=== PATIENT | female | born 1960 | race Caucasian/White ===

== ENCOUNTER 2020-03-19 16:46 | Emergency (ER) | payer OTHER ==
[~2020-03-19] VITALS: Ht 177.8 cm; Wt 63.6 kg
--- NOTE | 2020-03-19 17:37 | PHYS DOC ---
Past Medical History Past Medical History: Arthritis, Depression Additional Past Medical Histor: COVID 19 (DARRYL ALARCON DO) Past Surgical History: Cholecystectomy, Hysterectomy Additional Past Surgical Histo: TENNIS ELBOW (DARRYL ALARCON DO) Smoking Status: Never Smoker Alcohol Use: None (DARRYL ALARCON DO) General Adult EDM: Chief Complaint: SHORTNESS OF BREATH HPI: HPI: Patient is a 59 year old female who presented to ER for evaluation of cough and trouble breathing. Patient was diagnosed with COVID-19 infection 11 days ago. Patient did not get better, she went to see her doctor yesterday who did an x- ray of her chest and she has developed pneumonia. Patient feels weak and tired, having trouble breathing with exertion so she came in today. Patient is not a smoker, she has no history of diabetes or hypertension. Patient has no history of coronary ARTERY DISEASE OR blood clot disorder. (DARRYL ALARCON DO) Review of Systems: Review of Systems: Constitutional: Denies fever or chills. [] Eyes: Denies change in visual acuity. [] HENT: Denies nasal congestion or sore throat. [] Respiratory: Positive for cough and shortness of breath. [] Cardiovascular: Denies chest pain or edema. [] GI: Denies abdominal pain, nausea, vomiting, bloody stools or diarrhea. [] : Denies dysuria. [] Musculoskeletal: Denies back pain or joint pain. [] Integument: Denies rash. [] Neurologic: Denies headache, focal weakness or sensory changes. POSITIVE FOR GENERALIZED WEAKNESS Endocrine: Denies polyuria or polydipsia. [] Lymphatic: Denies swollen glands. [] Psychiatric: Denies depression or anxiety. [] (DARRYL ALARCON DO) Heart Score: Risk Factors: Risk Factors: DM, Current or recent (<one month) smoker, HTN, HLP, family history of CAD, obesity. Risk Scores: Score 0 - 3: 2.5% MACE over next 6 weeks - Discharge Home Score 4 - 6: 20.3% MACE over next 6 weeks - Admit for Clinical Observation Score 7 - 10: 72.7% MACE over next 6 weeks - Early Invasive Strategies (DARRYL ALARCON DO) Allergies: Allergies: Allergies Coded Allergies Type Severity Reaction Last Updated Verified nitrofurantoin Allergy Unknown HIVES 03/19/20 Yes (DARRYL ALARCON DO) Physical Exam: PE: Constitutional: Well developed, well nourished, no acute distress, non-toxic appearance. [] HENT: Normocephalic, atraumatic, bilateral external ears normal, oropharynx moist, no oral exudates, nose normal. [] Eyes: PERRLA, EOMI, conjunctiva normal, no discharge. [] Neck: Normal range of motion, no tenderness, supple, no stridor. [] Cardiovascular:Heart rate regular rhythm, no murmur [] Lungs & Thorax: Bilateral breath sounds clear to auscultation [] Abdomen: Bowel sounds normal, soft, no tenderness, no masses, no pulsatile masses. [] Skin: Warm, dry, no erythema, no rash. [] Back: No tenderness, no CVA tenderness. [] Extremities: No acute problem, no edema, no swelling no deformity. Neurologic: Alert and oriented X 3, normal motor function, normal sensory function, no focal deficits noted. [] Psychologic: Affect normal, judgement normal, mood normal. [] (DARRYL ALARCON DO) Current Patient Data: Labs: Laboratory Tests Test 03/19/20 17:30 White Blood Count 5.0 x10^3/uL Red Blood Count 4.09 x10^6/uL Hemoglobin 12.1 g/dL Hematocrit 35.0 % Mean Corpuscular Volume 86 fL Mean Corpuscular Hemoglobin 30 pg Mean Corpuscular Hemoglobin Concent 35 g/dL Red Cell Distribution Width 12.8 % Platelet Count 259 x10^3/uL Neutrophils (%) (Auto) 68 % Lymphocytes (%) (Auto) 17 % Monocytes (%) (Auto) 14 % Eosinophils (%) (Auto) 0 % Basophils (%) (Auto) 0 % Neutrophils # (Auto) 3.4 x10^3/uL Lymphocytes # (Auto) 0.9 x10^3/uL Monocytes # (Auto) 0.7 x10^3/uL Eosinophils # (Auto) 0.0 x10^3/uL Basophils # (Auto) 0.0 x10^3/uL Current Medications Medications (Trade) Dose Ordered Sig/Fidelina Route PRN Reason Start Time Stop Time Status Last Admin Dose Admin Dexamethasone Sodium Phosphate (Decadron) 4 mg 1X ONCE IVP 03/19/20 18:00 03/19/20 18:01 DC Sodium Chloride 1,000 ml @ 1,000 mls/hr 1X ONCE IV 03/19/20 18:00 03/19/20 18:59 Vital Signs: Vital Signs Date Time Temp Pulse Resp B/P (MAP) Pulse Ox O2 Delivery O2 Flow Rate FiO2 03/19/20 17:08 98.4 60 18 131/63 (85) 96 Room Air 98.4 (DARRYL ALARCON DO) Radiology/Procedures: Radiology/Procedures: [][address] [place] [address] IMAGING REPORT Signed PATIENT: ANTHONY HARDY ACCOUNT: [id number] : 1960 LOCATION: ER AGE: 59 SEX: F EXAM STATUS: REG ER ORD. PHYSICIAN: DARRYL ALARCON DO REASON: SOA, COVID-19 INFECTION SINCE 03/09/20 PROCEDURE: PORTABLE CHEST 1V INDICATION: Reason: SOA, COVID-19 INFECTION SINCE 03/09/20 / Spl. Instructions: / History: COMPARISON: None. FINDINGS: Single view of chest obtained. Mild interstitial opacities. There is also patchy nodular component on the left. Cardiac silhouette is not enlarged. IMPRESSION: * Mild interstitial as well as patchy nodular opacities. This could be infectious in nature including from viral etiology. Follow-up could be obtained to ensure that this appropriately decreases. Electronically signed by: Mike Thomas MD (03/19/2020 6:01 PM) [id number] DICTATED and SIGNED BY: MIKE THOMAS MD DATE: 03/19/20 [id number] (DARRYL ALARCON DO) Radiology/Procedures: IMAGING REPORT Signed PATIENT: ANTHONY HARDY ACCOUNT: [id number] : 1960 LOCATION: ER AGE: 59 SEX: F EXAM STATUS: REG ER ORD. PHYSICIAN: DARRYL ALARCON DO REASON: SOA, COVID-19 INFECTION SINCE 03/09/20 PROCEDURE: PORTABLE CHEST 1V INDICATION: Reason: SOA, COVID-19 INFECTION SINCE 03/09/20 / [facility]. Instructions: / History: COMPARISON: None. FINDINGS: Single view of chest obtained. Mild interstitial opacities. There is also patchy nodular component on the left. Cardiac silhouette is not enlarged. IMPRESSION: * Mild interstitial as well as patchy nodular opacities. This could be infectious in nature including from viral etiology. Follow-up could be obtained to ensure that this appropriately decreases. Electronically signed by: Mike Thomas MD (03/19/2020 6:01 PM) [id number] DICTATED and SIGNED BY: MIKE THOMAS MD DATE: 03/19/20 [id number] ([facility],JOHANN Ospina DO) Course & Med Decision Making: Course & Med Decision Making Pertinent Labs and Imaging studies reviewed. (See chart for details) Patient is a 59-year-old female who presented to ER for evaluation general weakness, trouble breathing, patient is currently infected with COVID-19. Care endorsed to incoming physician at shift change [facility]. (DARRYL ALARCON DO) Course & Med Decision Making COVID-19 CRITERIA: The patient was evaluated during the global COVID-19 pandemic, and that diagnosis was suspected/considered upon their initial presentation. Their evaluation, treatment and testing was consistent with current guidelines for patients who present with complaints or symptoms that may be related to COVID-19. Concern for worsening shortness of breath in the setting of Covid. Patient speaking in full sentences, no increased work of breathing or hypoxia, not requiring any oxygen. Labs with elevated liver enzymes which could be attributed to Covid, has broad differential. Patient afebrile with no leukocytosis or leukopenia. Patient reports she did smoke tobacco at one point in her life-is not wheezing. Is currently on day 2/3 of oral antibiotics for pneumonia. Will discharge home with albuterol inhaler as needed and Flovent twice daily. Will discharge home with strict ED return precautions were given for chest pain, dyspnea, stroke symptoms or increased work of breathing. Encouraged urgent outpatient follow-up with PMD to repeat LFTs and pulmonology if symptoms should become chronic. Life-threatening processes were considered but are low suspicion at this time, given history, physical exam and ED workup. Pt was educated on all prescription medications and adverse effects. All patient's questions were answered and pt was stable at time of discharge. Life/limb-threatening differential includes but is not limited to, ACS, dysrhythmia, pneumothorax or hemothorax, pulmonary embolus, pneumonia, bronchoconstriction, pulmonary edema, angioedema, epiglottitis, tracheitis, Brian's angina, RPA/CARPET TILE LAYER, anaphylaxis, angioedema, cardiac tamponade or murmurs, pericarditis, myocarditis, poisoning or toxicity, sepsis or autoimmune/neurologic disease. I spoken with the patient and her caregivers. I explained the patient's condition, diagnoses and treatment plan based on the information available to me at this time. I have answered the patient and her caregiver's questions and addressed any concerns. The patient and her caregivers have a good understanding of patient's diagnosis, condition and treatment plan as can be expected at this point. Vital signs have been stable. Patient's condition is stable and appropriate for discharge from the emergency department. Patient will pursue further outpatient evaluation with primary care physician or other designated or consulting physician as outlined in the discharge instructions. The patient and/or caregivers are agreeable to this plan of care and follow-up instructions have been explained in detail. The patient and/or caregivers have received these instructions in written form and have expressed an understanding of the discharge instructions. The patient and/or caregivers are aware that any significant change of condition or worsening of symptoms should prompt immediate return to this or the closest emergency department or call to 911. (JOHANN PARHAM DO) Dragon Disclaimer: Karina Disclaimer: This electronic medical record was generated, in whole or in part, using a voice recognition dictation system. (DARRYL ALARCON DO) Departure Departure Impression: Primary Impression: COVID-19 virus infection Additional Impressions: Elevated liver enzymes Pneumonia Disposition: 01 DC HOME SELF CARE/HOMELESS Condition: STABLE Referrals: UNKNOWN PCP NAME (PCP) FOLLOW UP WITH FAMILY MEDICINE: TO REPEAT FOR LIVER FUNCTION TESTS (AST/ALT) Family Medicine Address: [address], [address] [place] [address] Patient Instructions: AST, Aspartate Aminotransferase Additional Instructions: FOLLOW UP WITH: [facility] Address: [address] [place] [address] Return to ED immediately if your oxygen level drops below 90% (purchase a pulse oximetry at a medical supply store), difficulties breathing including rapid breathing or increased work of breathing (skin sucking under ribs), chest pain or stroke-like symptoms (facial droop, speech changes, arm/leg weakness). You have been tested for or diagnosed with COVID-19. It is an infection caused by a new type of coronavirus. COVID-19 will cause cold-like or mild flu symptoms in most. It can cause more severe symptoms like problems breathing in some. There is no treatment for COVID-19. The body will clear the infection over time. Self-care will help to ease discomfort. Steps to Take: Self-Care Rest as needed. Healthy habits may help you feel better. Steps include: Choose healthy foods including fruits and vegetables. Drink water throughout the day. Get plenty of sleep each night. If you smoke, try to quit. It may ease breathing. Avoid alcohol. Keep Others Healthy The virus can spread to others. Droplets are released every time you sneeze or cough. The droplets can get into the mouth, nose, or eyes of people near you and lead to infection. To lower the chances of spreading COVID-19 to others: Stay at home until your doctor has said it is safe to leave. If you tested positive this will mean staying isolated until both of the following are true: At least 7 days have passed since the start of illness. You are free of fever for at least 72 hours without the use of medicine. During this time: - Avoid public areas, events, or transportation. Do not return to work or school until your doctor has said it is safe to do so. - Call ahead if you need to go to a medical center. Let them know you may have COVID-19. It will help them guide you where to go. They may also ask you to wear a facemask when you come to the office. - If you call for emergency medical services, let them know you may have COVID- 19. While at home: - Try to avoid close contact with others. Stay about 6 feet away. - If possible, spend most of your time in a separate room from others. - Use a face mask if you will be in close contact with others such as sharing a room or vehicle. - Have someone wipe down common surfaces in the home. Use household cable respooler every day on areas like doorknobs, counters, or sinks. - Cough or sneeze into a tissue. Throw the tissue away right after use. If a tissue is not available, cough or sneeze into your elbow. - Wash your hands often. Wash them after sneezing or coughing. Use soap and water and wash for at least 20 seconds. Alcohol based hand industrial sweeper cleaner can be used if soap and water is not available. - Do not prepare food for others. Avoid sharing personal items like forks, spoons, or toothbrushes. - Avoid close contact with pets while you are sick. There is no evidence of the virus passing to pets. This is a safety step until more is known about this virus. Isolation can be frustrating. Social interaction can help. Keep in touch with friends and family through phone and tech options. You can still interact with others in your home, just keep a safe distance of about 6 feet. Follow-up: Your doctors office will check in with you to see if there are any changes in your health. You may be asked to keep track of symptoms to share with them. They will also let you know when you are clear to be in public again. Problems to Look Out For: Contact your doctor if your recovery is not going as you expect. Get emergency care if you have problems such as: - Trouble breathing - Nonstop chest pain or pressure - Changes in awareness, confusion, or problems waking - Lips or face have bluish color - Worsening of symptoms If you think you have an emergency, call for emergency medical services right away. [facility] Fluticasone Propionate (FLOVENT 44MCG HFA) 10.6 Gm Aer.w.adap 2 PUFF IH BID, #1 INHALER 0 Refills Prov: JOHANN PARHAM DO 03/19/20 Albuterol Sulfate (VENTOLIN HFA INHALER) 18 Gm Hfa.aer.ad 2 PUFF INH QID for FOR ASTHMA for 30 Days, #1 INHALER 0 Refills Prov: JOHANN PARHAM DO 03/19/20 DARRYL ALARCON DO Mar 19, 2020 17:37 JOHANN PARHAM DO Mar 19, 2020 18:22
[2020-03-19 17:45] LABS: BASO % 0 % (0-3); EOS % 0 % (0-3); HEMOGLOBIN 12.1 g/dL (12.0-15.5); LYMPH # 0.9 x10^3/uL (1.0-4.8); LYMPH % 17 % (24-48); MEAN CORPUSCULAR HEMOGLOBIN 30 pg (25-35); MEAN CORPUSCULAR HGB CONC 35 g/dL (31-37); MEAN CORPUSCULAR VOLUME 86 fL (79-100); MONO # 0.7 x10^3/uL (0.0-1.1); MONO % 14 % (0-9); NEUT # 3.4 x10^3/uL (1.8-7.7); NEUT % 68 % (31-73); PLATELET COUNT 259 x10^3/uL (140-400); RED BLOOD COUNT 4.09 x10^6/uL (3.50-5.40); RED CELL DISTRIBUTION WIDTH 12.8 % (11.5-14.5)
[2020-03-19] MEDS ORDERED: IV NORMAL SALINE 1000ML BAG 1,000 ML IV ONE (18:00)
[2020-03-19] MEDS ORDERED: DEXAMETHASONE SOD PHOS 4 MG/ML VIAL IVP ONE (18:00)
--- NOTE | 2020-03-19 18:04 | RAD ---
INDICATION: Reason: SOA, COVID-19 INFECTION SINCE 03/09/20 / Spl. Instructions: / History: COMPARISON: None. FINDINGS: Single view of chest obtained. Mild interstitial opacities. There is also patchy nodular component on the left. Cardiac silhouette i s not enlarged. IMPRESSION: * Mild interstitial as well as patchy nodular opacities. This could be infectious in nature includin g from viral etiology. Follow-up could be obtained to ensure that this appropriately decreases. Electronically signed by: Trevor Zuleta MD (03/19/2020 6:01 PM) [id number]
[2020-03-19 18:06] LABS: CALCIUM 9.4 mg/dL (8.5-10.1); CREATININE 0.7 mg/dL (0.6-1.0); GFR 85.1; POTASSIUM 4.1 mmol/L (3.5-5.1)
[2020-03-19 18:14] LABS: ALBUMIN/GLOBULIN RATIO 0.7 (1.0-1.7); TOTAL BILIRUBIN 0.4 mg/dL (0.2-1.0); TOTAL PROTEIN 7.2 g/dL (6.4-8.2)
--- NOTE | 2020-03-19 18:16 | EKG ---
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
[2020-03-19 19:07] LABS: BILIRUBIN,URINE NEGATIVE (NEG); CLARITY,URINE CLEAR; COLOR,URINE YELLOW; NITRITE,URINE NEGATIVE (NEG); PH,URINE 7.5 (<5.0-8.0); PROTEIN,URINE 100 mg/dL (NEG-TRACE)
[2020-03-19 19:15] LABS: BACTERIA,URINE 0 /HPF (0-FEW); RBC,URINE 0 /HPF (0-2); WBC,URINE OCC /HPF (0-4)
[2020-03-19 20:09] VITALS: BP 142/79
[2020-03-19] MEDS ORDERED: FLUT10.6 IH (20:10)
[2020-03-19] MEDS ORDERED: VENTOLIN HFA18 GM INH (20:10)
== END 2020-03-19 20:26 | disposition home or self-care (01) ==
LOC: ER 16:46
DX: U07.1 COVID-19 (principal); R79.89 Other specified abnormal findings of blood chemistry; J18.9 Pneumonia, unspecified organism; R05 Cough; R06.02 Shortness of breath; M19.90 Unspecified osteoarthritis, unspecified site; F32.9 Major depressive disorder, single episode, unspecified; Z90.49 Acquired absence of other specified parts of digestive tract; Z90.710 Acquired absence of both cervix and uterus; Z98.890 Other specified postprocedural states; Z88.1 Allergy status to other antibiotic agents
CPT/HCPCS: 36415; 71045; 80053; 81001; 83605; 83690; 84484; 85025; 87040; 87086; 93005; 96361; 96374; 99285; J1100; J7030